=== PATIENT | male | born 1975 | race Caucasian/White ===

== ENCOUNTER 2022-10-13 06:22 | Day surgery (SDC) | payer OTHER ==
[~2022-10-13] VITALS: Ht 182.9 cm; Wt 94.2 kg
[2022-10-13] VITALS (8 sets, daily range): BP systolic 112–154; BP diastolic 59–100
[~2022-10-13 06:22] MED LIST: NO HOME MEDS; cefazolin 2gm/D5W 100mL 100 ML IV ONE; famotidine 20mg tablet PO ONE; ringers solution, lacted 1,000 ML IV SCH
[2022-10-13 07:51] LABS: BASOPHILS # (AUTO) 0.1 X10'3 (0-0.2); BASOPHILS % (AUTO) 0.8 % (0-1); EOSINOPHILS # (AUTO) 0.3 X10'3 (0-0.9); EOSINOPHILS % (AUTO) 3.4 % (0-6); LYMPHOCYTES # (AUTO) 1.6 X10'3 (1.1-4.8); LYMPHOCYTES % (AUTO) 19.7 % (21-51); MEAN CORPUSCULAR HEMOGLOBIN 31.5 PG (27.0-31.0); MEAN CORPUSCULAR HGB CONC 34.7 g/dL (33.0-36.5); MEAN CORPUSCULAR VOLUME 90.8 FL (78-98); MEAN PLATELET VOLUME 8.2 FL (7.4-10.4); MONOCYTES # (AUTO) 1.3 X10'3 (0-0.9); MONOCYTES % (AUTO) 16.3 % (2-12); NEUTROPHILS # (AUTO) 4.9 X10'3 (1.8-7.7); NEUTROPHILS % (AUTO) 59.8 % (42-75); PRE OP HEMATOCRIT 52.4 % (42.0-52.0); PRE OP PLATELET COUNT 240 X10'3 (140-440); RED BLOOD COUNT 5.77 X10'6 (4.70-6.10)
[2022-10-13 07:56] LABS: PRE OP HEMOGLOBIN 18.2 g/dL (14.0-17.9)
[2022-10-13 08:13] LABS: ALBUMIN 3.9 G/DL (3.4-5.0); ALBUMIN/GLOBULIN RATIO 0.9 (1.1-1.5); ALKALINE PHOSPHATASE 123 IU/L (46-116); BLOOD UREA NITROGEN 11 MG/DL (7-18); BUN/CREATININE RATIO 15.7 (10.0-20.0); CALCIUM 9.3 MG/DL (8.5-10.1); CHLORIDE 100 MMOL/L (99-107); PRE OP ALT 45 U/L (30-65); PRE OP ANION GAP 12 (8-16); PRE OP AST 28 U/L (10-37); PRE OP BILIRUB, TOTAL 1.1 MG/DL (0.0-1.0); PRE OP GLUCOSE 165 MG/DL (70-104); PRE OP POTASSIUM 4.2 MMOL/L (3.4-5.1); PRE OP SODIUM 135 MMOL/L (135-145); TOTAL CARBON DIOXIDE 23.1 MMOL/L (24-32); TOTAL PROTEIN 8.2 G/DL (6.4-8.2); eGFR > 90 ML/MIN
[2022-10-13 09:02] LABS: CLARITY,URINE CLOUDY (Clear); COLOR,URINE YELLOW (Yellow); GLUCOSE, URINE NEGATIVE (Neg); KETONES,URINE TRACE mg/dl (Neg); LEUKOCYTE ESTERASE ,URINE NEGATIVE (Neg); NITRITES, URINE NEGATIVE (Neg); OCCULT BLOOD,URINE NEGATIVE (Neg); PROTEIN,URINE 30 mg/dl (Neg); UROBILINOGEN,URINE 0.2 E.U/dL (0.2-1.0)
[2022-10-13 09:17] LABS: MUCUS STRANDS MANY /LPF (Neg); SQUAMOUS EPITHELIAL CELL,UR MANY /LPF (FEW); UA COLLECTION TYPE NON-SPECIFIED
[2022-10-13 09:18] LABS: BACTERIA,URINE FEW /HPF (Neg); HYALINE CASTS 0-3 /LPF (NEGATIVE); RBC,URINE 0-2 /HPF (0-2)
[2022-10-13] MEDS ORDERED: bacitracin 15gm ointment TP ONE (09:21)
[2022-10-13] MEDS ORDERED: BUPIVAcaine/PF 2.5 mg/ml (0.25%) 30ml vial ONE (09:21)
[2022-10-13] MEDS ORDERED: cloNIDine hcl/PF 100mcg/ml inj ONE (09:26)
[2022-10-13] MEDS ORDERED: meperidine/PF 25mg/ml syringe IV PRN ×3 (09:30)
[2022-10-13] MEDS ORDERED: ondansetron/PF 4mg/2ml inj IV PRN (09:30)
[2022-10-13] MEDS ORDERED: morphine 2 MG/ML inj. syringe IV PRN (09:30)
[2022-10-13] MEDS ORDERED: ringers solution, lacted 1,000 ML IV SCH (09:30)
[2022-10-13] MEDS ORDERED: morphine 4 MG/ML inj SYRINge IV PRN (09:30)
[2022-10-13] MEDS ORDERED: proCHLORperazine 10 MG/2 ml inj IV PRN (09:30)
[2022-10-13] MEDS ORDERED: sevoflurane 250ml liquid IH ONE (09:31)
[2022-10-13] MEDS ORDERED: midazolam 1 mg/ML 2ml injection ONE (09:33)
[2022-10-13] MEDS ORDERED: fentaNYL/PF 50MCG/1 ML 2ML syringe ONE (09:33)
[2022-10-13] MEDS ORDERED: propofol inj 20 ML IV ONE (09:33)
[2022-10-13] MEDS ORDERED: ROPIVAcaine 0.5% (5mg/ml) 30ml vial ONE (09:34)
--- NOTE | 2022-10-13 12:14 | NUR ---
Received from OR via , accompanied by Anesthesiologist CLARICE AND OR NURSEHAILEE and report given by Anesthesiolgist. PT IS DROWSY YET RESPONDS TO VERBAL STIMULI. DENIES PAIN OR DISCOMFORT. LT FOOT IN CAST/GAUZE AND TOMAS WRAP; CDI. 18G TO RT HAND. VSS Addendum: 10/13/22 at 1232 by Alyssa Helton RN Amended: Links added.
--- NOTE | 2022-10-13 13:24 | NUR ---
DC HOME: ALL DISCHARGE CRITERIA HAS BEEN MET. VSS, PAIN AT A TOLERABLE LEVEL, VOIDING AND ABLE TO SAFELY AMBULATE AND TRANSFER SELF. IV TAKEN OUT WITHOUT ANY COMPLICATIONS. ALL DISCHARGE INSTRUCTIONS COVERED WITH PATIENT AND ALL QUESTIONS ANSWERED. PATIENT TAKEN OUT VIA WHEELCHAIR TO PERSONAL VEHICLE WHERE MOTHER DROVE PATIENT HOME. Addendum: 10/13/22 at 1328 by Alyssa Helton RN Amended: Links added.
== END 2022-10-13 13:24 | disposition home or self-care (01) ==
LOC: PAS 06:22
PROVIDERS: ATTEND Podiatrist Foot & Ankle Surgery
DX: S82.842A Displaced bimalleolar fracture of left lower leg, initial encounter for closed fracture (principal); S93.492A Sprain of other ligament of left ankle, initial encounter; S93.422A Sprain of deltoid ligament of left ankle, initial encounter; Z79.899 Other long term (current) drug therapy; F17.210 Nicotine dependence, cigarettes, uncomplicated; Z98.890 Other specified postprocedural states; G89.18 Other acute postprocedural pain; X58.XXXA Exposure to other specified factors, initial encounter; Y93.89 Activity, other specified; Y92.89 Other specified places as the place of occurrence of the external cause; Y99.8 Other external cause status
CPT/HCPCS: 27695; 27814; 27829; 36415; 64445; 64447; 73600; 76000; 80053; 81001; 82948; 83036; 85025; 93005; A6223; C1713; J0690; J0735; J2250; J2704; J2795; J3010; J3490; J7030; J7120; Z7506; Z7508; Z7512; A4618; A6253; A6449; A7000; C1769